=== PATIENT | female | born 1965 | race African-American/Black ===

== ENCOUNTER 2020-02-24 17:39 | Observation (INO) ==
[2020-02-24] MEDS ORDERED: METHYLPREDNISOLONE SOD SUCC/PF 125 MG/2 ML VIAL IV ONE (18:09)
[2020-02-24] MEDS ORDERED: FAMOTIDINE 10 MG/ML VIAL IV ONE (18:10)
[2020-02-24] MEDS ORDERED: diphenhydrAMINE HCL 50 MG/ML VIAL IV ONE (18:10)
--- NOTE | 2020-02-24 18:33 | ERNOTE ---
Allergy Symptoms - ER Date of Service: 02/24/20 Presenting Symptoms: other - bottom lip swelling Time Seen by Provider: 02/24/20 18:06 Source: patient Exam Limitations: no limitations Immunizations: IMMUNIZATION HX Immunizations Up to Date Yes History of Influenza Vaccine No Hx Pneumococcal Vaccination No Allergies/Adverse Reactions: Allergies lisinopril Allergy (Verified 02/24/20 18:22) Home Medications: HOME MEDICATIONS Ibuprofen [Motrin] 600 mg PO Q6H PRN #40 tab 12/25/18 [Last Taken Unknown] clotrimazole-betamethasone 1 %-0.05 % topical cream 1 applic TP BID 14 Days #45 g 06/28/19 [Last Taken Unknown] budesonide-formoterol HFA 160 mcg-4.5 mcg/actuation aerosol inhaler 2 inh IH BID 10/01/19 [Last Taken Unknown] cyclobenzaprine 10 mg tablet 10 mg PO TID PRN 10/01/19 [Last Taken Unknown] tiotropium bromide 18 mcg capsule with inhalation device 1 cap IH DAILY 10/01/19 [Last Taken Unknown] atenolol 50 mg tablet 50 mg PO DAILY #30 tab 12/03/19 [Last Taken Unknown] metformin 1,000 mg tablet 1,000 mg PO BID #60 tab 12/03/19 [Last Taken Unknown] albuterol sulfate 90 mcg/actuation aerosol inhaler 1 inh IH Q6H PRN #8.5 g 12/27/19 [Last Taken Unknown] ipratropium 0.5 mg-albuterol 3 mg (2.5 mg base)/3 mL nebulization soln 3 ml IH QID #150 vial 12/27/19 [Last Taken Unknown] lamotrigine 25 mg tablet See Rx Instructions PO .COMPLEX #48 tab 02/14/20 [Last Taken Unknown] amlodipine 5 mg tablet 5 mg PO DAILY #30 tab 02/20/20 [Last Taken Unknown] gabapentin 100 mg capsule 100 mg PO BID #60 cap 02/20/20 [Last Taken Unknown] lisinopril 10 mg tablet 10 mg PO DAILY #30 tab 02/20/20 [Last Taken Unknown] - History of Present Illness Narrative: Patient presents to the ED for low lip swelling. This started today at 1700. No tongue swelling. No trouble breathing or swallowing. Has never had this happen before. Patient started on Lisinopril on 1/13/21. No rash. No trauma. Has not seen anyone else for this. Timing: Present: constant Treatment COREMAKING MACHINE OPERATOR:: none Location skin rash/itching: Present: none Location swelling: Present: other - low lip Identified cause?: Yes - likely Lisinopril Exposure: Present: ACOSTA inhibitor Modifying Factors (Improves): Reports: nothing Modifying Factors (Worsens): Reports: nothing Similar symptoms previously: No Prior Treament: Reports: recently seen. Denies: similar symptoms before Review of Systems - Review of Systems Constitutional: Absent: fever EYE: Present: no symptoms reported ENT: Absent: sore throat, throat swelling Respiratory: Absent: shortness of breath Cardiology: Absent: chest pain Gastrointestinal/Abdominal: Absent: abdominal pain Neurological: Absent: weakness All Other Systems: All systems neg except as marked Medical History (Last Reviewed 02/24/20 @ 18:32 by Omar Castaneda MD) Diabetes mellitus, type II (Acute) Trigger finger of left thumb (Resolved) Status post A1 alie release with Dr. Ramirez on 08/15/2018 Left knee pain (Chronic) Osteoarthritis of left knee (Chronic) Sinusitis (Acute) Back pain (Acute) UTI (urinary tract infection) (Acute) Knee injury (Acute) COPD (chronic obstructive pulmonary disease) (Suspected) Neuropathy (Acute) Chest pain, musculoskeletal (Acute) Leg pain (Acute) Bronchitis (Acute) Acquired hammertoe of left foot Left knee pain Onset Date: Unknown Sinusitis Onset Date: Unknown Diabetes Onset Date: Unknown Hypertension Onset Date: Unknown Neuropathy Onset Date: Unknown Surgical History: Surgical History (Last Reviewed 02/24/20 @ 18:32 by Omar Castaneda MD) History of hammertoe correction left foot 12/19/19 Status post trigger finger release Onset Date: 08/15/18 Left thumb A1 alie release, debridement of [employer] tendon-Dr. Ramirez History of colonoscopy Onset Date: 09/12/18 09/12/18 Kaden-incomplete, very tortuous colon. Barium enema done-mild diverticulosis. Recheck colonoscopy 5yrs at [facility]. History of hysterectomy Onset Date: ~1992 abd w/1 ovary removed History of lumpectomy of left breast Onset Date: Unknown Family History: Family History (Last Reviewed 02/24/20 @ 18:32 by Omar Castaneda MD) Family/Other Heart disease Myocardial infarction COPD (chronic obstructive pulmonary disease) CVA (cerebral vascular accident) Diabetes DVT (deep venous thrombosis) Mother , age 69-[place] Hypertension Myocardial infarction Bipolar disorder Father , age 80-multiple hx problems Diabetes Hypertension Cancer colon ca-dx age 68 Brother Heart disease Sister , age 70-[place] Cancer breast ca-dx age 40's Bipolar disorder Sister , age 52 Amputation below knee h/o blood clots CVA (cerebral vascular accident) Sister , age 64-brain tumor No problems noted. Sister COPD (chronic obstructive pulmonary disease) 1 sister Alive and well 1 sister Heart disease 1 sister Kidney problem 1 sister Social History: (Last Reviewed 02/24/20 @ 18:32 by Omar Castaneda MD) Social History: Marital status: Single lives independently: Yes household members: none number of children: 0 current occupational status: unemployed Highest level of school completed/degree received: high school graduate Service: No Tobacco: Smoking Status: Former smoker tobacco type: cigarettes Smoking cigarettes per day: 5.0 Smoking packs per day: 0.25 Alcohol: alcohol intake: former Substance Use: substance use type: does not use Dietary Habits: caffeine: Yes caffeine comment: 2 Type: coffee Personal Safety: victim of physical abuse: No victim of emotional abuse: No Physical Exam - Physical Exam General Appearance: Present: alert, no apparent distress Head Exam: Present: normal inspection, no evidence of injury Eye Exam: Normal inspection: bilateral, PERRL: bilateral Ears, Nose, Throat: Present: other - Low lip diffusely swollen. no tongue swelling. No upper lip swelling. Posterior oropharynx wnl. No COREMAKING MACHINE OPERATOR, RPA or epiglottitis Neck: Present: normal inspection, other - no mass Respiratory: Present: no respiratory distress, normal breath sounds, no accessory muscle use, lungs clear. Absent: respiratory distress, decreased breath sounds, stridor, wheezing Cardiovascular/Chest: Present: regular rate, rhythm, normal peripheral pulses Gastrointestinal/Abdominal: Present: normal bowel sounds, nontender, soft Back Exam: Present: normal range of motion Extremity Exam: Present: normal inspection, normal range of motion Neurological Exam: Present: alert, no motor/sensory deficits, cloth picker II-XII nml as tested Skin Exam: Present: normal color, warm/dry, other - no hives. Absent: skin rash Progress - Vital Signs Patient's Vital Signs:: I have reviewed the patient's vital signs. Vital Signs: Vital Signs 02/24/20 17:57 Temperature 36.3 C Pulse Rate 97 Respiratory Rate 16 Blood Pressure 133/91 H O2 Sat by Pulse Oximetry 95 - Progress/Reassessment Chief Complaint: Allergic Reaction Progress Note-Subjective: 02/24/20 18:53 Patient has angioedema likely from lisinopril. IT has been stable here in the ED after IV Solumedrol, Pepcid and Benadryl. No airway involvement at this time. I feel she needs hospitalization as the clinical course of her angioedema is not apparent at this time and need to be monitored for deterioration/airway involvement/worsening. She is agreeable to admission. I discussed the case with Dr Montano who will admit the patient. Departure Clinical Impression: Angioedema - Departure Disposition: Still a patient Condition: Stable Referrals: Krissy Archibald MD [Primary Care Provider] -
[2020-02-24] MEDS ORDERED: NORMAL SALINE 1,000 ML IV ONE (18:52)
[2020-02-24] MEDS ORDERED: IBUPROFEN 600 MG TABLET PO PRN (21:26)
--- NOTE | 2020-02-24 21:42 | HP ---
Chief Complaint - Chief Complaint Date of Service: 02/24/20 Time of Service: 21:34 Chief Complaint: My lower lip swelled up this afternoon History of Present Illness: 54-year-old -[place] female with past medical history of type 2 diabe rosa elena, hypertension, morbid obesity, COPD, and nicotine dependence, was evaluated in the ER earlier today for angioedema of her lower lip that started this afternoon. Patient was recently started on an ACOSTA inhibitor 3 days ago and said she took the medication this morning and this afternoon she noticed that her left started swelling. She denies any difficulty breathing or any tightening in her throat or any chest pain. The patient was treated with IV steroids, Benadryl, and famotidine in the ER and appears to be improving. As a precaution was determined that she should stay in the hospital overnight for close monitoring in case her angioedema worsens. Medical History (Last Reviewed 02/24/20 @ 20:39 by Michelle Wiggins RN) Diabetes mellitus, type II (Acute) Trigger finger of left thumb (Resolved) Status post A1 alie release with Dr. Ramirez on 08/15/2018 Left knee pain (Chronic) Osteoarthritis of left knee (Chronic) Sinusitis (Acute) Back pain (Acute) UTI (urinary tract infection) (Acute) Knee injury (Acute) COPD (chronic obstructive pulmonary disease) (Suspected) Neuropathy (Acute) Chest pain, musculoskeletal (Acute) Leg pain (Acute) Bronchitis (Acute) Acquired hammertoe of left foot Left knee pain Onset Date: Unknown Sinusitis Onset Date: Unknown Diabetes Onset Date: Unknown Hypertension Onset Date: Unknown Neuropathy Onset Date: Unknown Surgical History: Surgical History (Last Reviewed 02/24/20 @ 20:38 by Michelle Wiggins RN) History of hammertoe correction left foot 12/19/19 Status post trigger finger release Onset Date: 08/15/18 Left thumb A1 alie release, debridement of [employer] tendon-Dr. Ramirez History of colonoscopy Onset Date: 09/12/18 09/12/18 Kaden-incomplete, very tortuous colon. Barium enema done-mild diverticulosis. Recheck colonoscopy 5yrs at [facility]. History of hysterectomy Onset Date: ~1992 abd w/1 ovary removed History of lumpectomy of left breast Onset Date: Unknown Family History: Family History (Last Reviewed 02/24/20 @ 20:39 by Michelle Wiggins RN) Family/Other Heart disease Myocardial infarction COPD (chronic obstructive pulmonary disease) CVA (cerebral vascular accident) Diabetes DVT (deep venous thrombosis) Mother , age 69-[place] Hypertension Myocardial infarction Bipolar disorder Father , age 80-multiple hx problems Diabetes Hypertension Cancer colon ca-dx age 68 Brother Heart disease Sister , age 70-[place] Cancer breast ca-dx age 40's Bipolar disorder Sister , age 52 Amputation below knee h/o blood clots CVA (cerebral vascular accident) Sister , age 64-brain tumor No problems noted. Sister COPD (chronic obstructive pulmonary disease) 1 sister Alive and well 1 sister Heart disease 1 sister Kidney problem 1 sister Social History: (Last Reviewed 02/24/20 @ 20:39 by Michelle Wiggins RN) Social History: Marital status: Single lives independently: Yes household members: none number of children: 0 current occupational status: unemployed Highest level of school completed/degree received: high school graduate Service: No Tobacco: Smoking Status: Former smoker tobacco type: cigarettes Smoking cigarettes per day: 5.0 Smoking packs per day: 0.25 Alcohol: alcohol intake: former Substance Use: substance use type: does not use Dietary Habits: caffeine: Yes caffeine comment: 2 Type: coffee Personal Safety: victim of physical abuse: No victim of emotional abuse: No Peds Patient Hx - Developmental: No Pertinent Hx Peds Patient Hx - Medical: No Pertinent Hx Peds Patient Hx - Cardiac/Respiratory: No Pertinent Hx Peds Patient Hx - Surgical: No Surgical History Patient History - Cancer: No Hx of Cancer Review Of Systems (GEN) - Review of Systems Generalized/Overall Review: Present: No Symptoms Reported EENTM: Present: Mouth Swelling - Lower lip swelling Respiratory: Present: No Symptoms Reported Cardiac: Present: No Symptoms Reported Abdominal: Present: No Symptoms Reported Genitourinary: Present: No Symptoms Reported Musculoskeletal: Present: No Symptoms Reported Neurological: Present: No Symptoms Reported Skin: Present: No Symptoms Reported Endocrine: Present: Increased Hunger Immunizations: IMMUNIZATION HX Immunizations Up to Date Yes History of Influenza Vaccine No Hx Pneumococcal Vaccination No Allergies/Adverse Reactions: Allergies Allergy/AdvReac Type Severity Reaction Status Date / Time lisinopril Allergy Intermediate Other Verified 02/24/20 20:37 Home Medications: HOME MEDICATIONS Ibuprofen [Motrin] 600 mg PO Q6H PRN #40 tab 12/25/18 [Last Taken Unknown] budesonide-formoterol HFA 160 mcg-4.5 mcg/actuation aerosol inhaler 2 inh IH BID 10/01/19 [Last Taken Unknown] tiotropium bromide 18 mcg capsule with inhalation device 1 cap IH DAILY 10/01/19 [Last Taken Unknown] atenolol 50 mg tablet 50 mg PO DAILY #30 tab 12/03/19 [Last Taken 02/24/20] metformin 1,000 mg tablet 1,000 mg PO BID #60 tab 12/03/19 [Last Taken 02/24/20] albuterol sulfate 90 mcg/actuation aerosol inhaler 1 inh IH Q6H PRN #8.5 g 12/27/19 [Last Taken Unknown] ipratropium 0.5 mg-albuterol 3 mg (2.5 mg base)/3 mL nebulization soln 3 ml IH QID #150 vial 12/27/19 [Last Taken Unknown] lamotrigine 25 mg tablet See Rx Instructions PO .COMPLEX #48 tab 02/14/20 [Last Taken 02/24/20] amlodipine 5 mg tablet 5 mg PO DAILY #30 tab 02/20/20 [Last Taken 02/24/20] gabapentin 100 mg capsule 100 mg PO BID #60 cap 02/20/20 [Last Taken 02/24/20] DULoxetine HCL [Cymbalta] 30 mg PO DAILY 02/24/20 [Last Taken 02/24/20] Montelukast Sodium 10 mg PO HS 02/24/20 [Last Taken Unknown] Exam - Exam Vital Signs: Vital Signs - Last Taken Temp 36.7 C 02/24/20 21:21 Pulse 78 02/24/20 21:21 Resp 18 02/24/20 21:21 BP 146/100 H 02/24/20 21:21 Pulse Ox 94 02/24/20 21:21 Constitutional: Present: Alert, Oriented x3, Cooperative, Well developed, Well n ourished, No distress, Morbidly obese ENT Exam: Present: hearing grossly normal, pharynx normal, moist mucous membranes, other - Significant edema of the lower lip Eye Exam: bilateral eye: normal inspection, PERRL, EOMI Neck: Present: non-tender, full range of motion, supple, normal inspection, trachea midline Back Exam: Present: normal inspection, no CVA tenderness, no vertebral tenderness Breasts: Present: Exam deferred, Nontender Respiratory: Present: chest non-tender, lungs clear, normal breath sounds, no respiratory distress, no accessory muscle use Cardiovascular/Chest: Present: normal peripheral pulses, regular rate, rhythm, no chest tenderness, no edema, no gallop, no JVD, no murmur, no rub Peripheral Pulses: dorsalis-pedis (R): 3+, dorsalis-pedis (L): 3+ Abdomen: Present: Normal bowel sounds, soft, nontender, nondistended, no rebound tenderness, no hepatospenomegaly, no masses, obese /Rectal: Present: Exam deferred Extremity: Present: normal range of motion, non-tender, normal inspection, no pedal edema, no calf tenderness, normal capillary refill, pelvis stable Skin Exam: Present: normal color, warm/dry, no cyanosis Lymphatic: Present: no adenopathy Neurologic: Present: no motor/sensory deficits, alert, normal mood/affect, oriented x 3 Appearance: Present: appropriate appearance, appropriate insight, neat, no memory impairment Eye contact: Present: cooperative, good eye contact, normal speech Thoughts: Present: normal thought pattern, no apparent hallucination Diagnostic Studies: Laboratory Results SARS-CoV-2 (PCR) Not detected (NotDetected) 02/24/20 19:10 Assessment/Plan - Narrative Narrative: Patient was evaluated medical chart was reviewed and decision to admit for observation for angioedema due to ACOSTA inhibitor was made. Patient maintained stable vitals and her edema appears to be improving, she denies shortness of b reath and was not noted to be wheezing. We will keep her for observation overnight and discharge in the morning if she improves. - Assessment/Plan (1) Angioedema Problem: Acute (2) Smoking Problem: Chronic (3) Hypertension Problem: Chronic Qualifiers: (4) Diabetes mellitus, type II Problem: Chronic Qualifiers: (5) COPD (chronic obstructive pulmonary disease) Problem: Suspected Qualifiers: (6) ACOSTA inhibitor-aggravated angioedema Problem: Acute
[2020-02-24] MEDS ORDERED: ALBUTEROL SULFATE/IPRATROPIUM 3 ML NEBU IH ONE (21:45)
[2020-02-24] MEDS ORDERED: ALBUTEROL SULFATE 2.5 MG/0.5 ML VIAL.NEB IH PRN (21:45)
[2020-02-24] MEDS: FLUTICASONE PROPION/SALMETEROL 14 PUFF DISK.W.DEV IH SCH (21:46)
[2020-02-24] MEDS: GABAPENTIN 100 MG CAPSULE PO SCH (21:46)
[2020-02-24] MEDS: ALBUTEROL SULFATE/IPRATROPIUM 3 ML NEBU IH SCH (21:49)
[2020-02-25] MEDS ORDERED: lamoTRIgine 100 MG TABLET PO SCH (00:45)
[2020-02-25] MEDS: ALBUTEROL SULFATE/IPRATROPIUM 3 ML NEBU IH SCH (06:05)
[2020-02-25] MEDS ORDERED: FLU VACC QS2020-21(6MOS UP)/PF 60 MCG/0.5 ML SYRINGE IM ONE (07:45)
[2020-02-25] MEDS: FLUTICASONE PROPION/SALMETEROL 14 PUFF DISK.W.DEV IH SCH (08:31)
[2020-02-25] MEDS: GABAPENTIN 100 MG CAPSULE PO SCH (08:31)
--- NOTE | 2020-02-25 08:44 | DS ---
Hospital Course: 54-year-old female with a past medical history of diabetes mellitus type 2, hypertension, COPD peripheral neuropathy, and osteoarthritis presents from home with complaints of lip swelling. She was started on lisinopril 3 to 4 days prior. She was found to have angioedema secondary to the lisinopril. Lisinopril was discontinued and her lip swelling has improved. She is stable to be discharged home today and will follow up with me in the office on February 26, 2019 Procedures Performed: none - 54-year-old female with a past medical history of Results and Findings: Lab Pending Results 02/24/20 19:10: SARS-CoV-2 (PCR) Not detected Discharge Location: Home Disposition: Home self-care Condition: Stable Discharge Activity: Activity as tolerated Discharge Diet: Consistent carbs Referrals: Krissy Archibald MD [Primary Care Provider] - Complete Home Medications List: Complete Home Medication List: Ibuprofen [Motrin] 600 mg PO Q6H PRN #40 tab 12/25/18 budesonide-formoterol HFA 160 mcg-4.5 mcg/actuation aerosol inhaler 2 inh IH BID 10/01/19 tiotropium bromide 18 mcg capsule with inhalation device 1 cap IH DAILY 10/01/19 atenolol 50 mg tablet 50 mg PO DAILY #30 tab 12/03/19 metformin 1,000 mg tablet 1,000 mg PO BID #60 tab 12/03/19 albuterol sulfate 90 mcg/actuation aerosol inhaler 1 inh IH Q6H PRN #8.5 g 12/27/19 ipratropium 0.5 mg-albuterol 3 mg (2.5 mg base)/3 mL nebulization soln 3 ml IH QID #150 vial 12/27/19 lamotrigine 25 mg tablet See Rx Instructions PO .COMPLEX #48 tab 02/14/20 amlodipine 5 mg tablet 5 mg PO DAILY #30 tab 02/20/20 gabapentin 100 mg capsule 100 mg PO BID #60 cap 02/20/20 DULoxetine HCL [Cymbalta] 30 mg PO DAILY 02/24/20 Montelukast Sodium 10 mg PO HS 02/24/20
[2020-02-25] MEDS ORDERED: ATENOLOL 50 MG TABLET PO SCH (09:00)
[2020-02-25] MEDS ORDERED: DULoxetine HCL 30 MG CAPSULE.SA PO SCH (09:00)
[2020-02-25] MEDS ORDERED: TIOTROPIUM BROMIDE 5 CAP INHALER IH SCH (09:00)
[2020-02-25] MEDS ORDERED: amLODIPine BESYLATE 5 MG TABLET PO SCH (09:00)
[2020-02-25 09:33] VITALS: BP 156/81
[2020-02-25] MEDS ORDERED: MONTELUKAST SODIUM 10 MG TABLET PO SCH (21:00)
== END 2020-02-25 09:30 | disposition home or self-care (01) ==
LOC: MS 17:39 → ER 17:39 → MS 20:25
PROVIDERS: ADMIT Family Medicine; ATTEND Internal Medicine